=== PATIENT | male | born 1955 | race Caucasian/White ===

== ENCOUNTER 2017-12-30 13:08 | Inpatient (IN) | payer MEDICAID ==
[~2017-12-30] VITALS: Ht 193 cm; Wt 131.5 kg
[2017-12-30 14:06] LABS: BASOPHILS 0.2 % (0-2); EOSINOPHILS 1.9 % (0-7); HEMATOCRIT 47.9 % (42.0-54.0); HEMOGLOBIN 17.1 g/dL (13.5-17.5); IMMATURE GRANULOCYTES 1.7 % (0-5); LYMPHOCYTES 18.1 % (15-50); MCH 32.1 pg (26.0-34.0); MCHC 35.7 g/dL (31.0-37.0); MEAN PLATELET VOLUME 10.9 fL (7.4-10.4); MONOCYTES 7.2 % (2-11); NEUTROPHILS 70.9 % (40-80); PLATELET COUNT 190 10x3/uL (130-400); RBC 5.32 10x6/uL (4.20-6.10); RDW 13.4 % (11.5-14.5); WBC 8.2 10x3/uL (4.8-10.8)
[2017-12-30 14:08] LABS: ALBUMIN 3.2 g/dL (3.4-5.0); BILIRUBIN - TOTAL 0.55 mg/dL (0.2-1.3); CALCIUM 8.8 mg/dL (8.5-10.1); CARBON DIOXIDE 25.3 mmol/L (21.0-32.0); CREATININE - SERUM 1.2 mg/dL (0.6-1.3); POTASSIUM - SERUM 4.3 mmol/L (3.5-5.1); PROTEIN - SERUM 6.9 g/dL (6.4-8.2)
[2017-12-30 16:41] LABS: C-REACTIVE PROTEIN 3.4 mg/dL (0.0-0.9); PRO BNP 34 pg/mL (0-125)
[2017-12-30 16:42] LABS: TROPONIN-I < 0.017 ng/mL (0.000-0.060)
[2017-12-30 22:20] VITALS: BP 121/72; BMI 35.3
[2017-12-31 05:07] VITALS: BP 153/89
[2017-12-31 07:57] VITALS: BP 144/84
[2017-12-31 22:12] VITALS: BP 143/87
[2018-01-01 04:27] VITALS: BP 158/76
[2018-01-01 06:29] LABS: BASOPHILS 0.2 % (0-2); HEMATOCRIT 48.4 % (42.0-54.0); HEMOGLOBIN 16.8 g/dL (13.5-17.5); IMMATURE GRANULOCYTES 1.1 % (0-5); LYMPHOCYTES 16.9 % (15-50); MCH 31.3 pg (26.0-34.0); MCHC 34.7 g/dL (31.0-37.0); MCV 90.1 fL (80.0-100.0); MEAN PLATELET VOLUME 10.9 fL (7.4-10.4); MONOCYTES 8.8 % (2-11); PLATELET COUNT 172 10x3/uL (130-400); RBC 5.37 10x6/uL (4.20-6.10); RDW 13.2 % (11.5-14.5); WBC 8.9 10x3/uL (4.8-10.8)
[2018-01-01 07:01] LABS: ANION GAP 10.5 mmol/L (8-16); CALCIUM 8.6 mg/dL (8.5-10.1); CARBON DIOXIDE 27.5 mmol/L (21.0-32.0); CHOL - HDL RATIO 4.8 ratio (2.3-4.9); CREATININE - SERUM 1.2 mg/dL (0.6-1.3); LDL-HDL RATIO 3.3 ratio (1.5-3.5)
[2018-01-01 09:26] VITALS: BP 138/87
[2018-01-01 12:17] VITALS: Ht 193 cm; Wt 131.5 kg
[2018-01-01 16:31] VITALS: BP 153/84
[2018-01-01 21:44] VITALS: BP 183/87
[2018-01-02 05:09] VITALS: BP 164/80
[2018-01-02 05:27] LABS: BASOPHILS 0.2 % (0-2); EOSINOPHILS 1.8 % (0-7); HEMATOCRIT 47.4 % (42.0-54.0); HEMOGLOBIN 16.4 g/dL (13.5-17.5); IMMATURE GRANULOCYTES 1.6 % (0-5); LYMPHOCYTES 19.9 % (15-50); MCH 31.3 pg (26.0-34.0); MCHC 34.6 g/dL (31.0-37.0); MCV 90.5 fL (80.0-100.0); MEAN PLATELET VOLUME 10.7 fL (7.4-10.4); MONOCYTES 10.4 % (2-11); NEUTROPHILS 66.1 % (40-80); PLATELET COUNT 166 10x3/uL (130-400); RBC 5.24 10x6/uL (4.20-6.10); RDW 13.2 % (11.5-14.5); WBC 8.7 10x3/uL (4.8-10.8)
[2018-01-02 05:39] LABS: ANION GAP 8.1 mmol/L (8-16); CALCIUM 8.3 mg/dL (8.5-10.1); CARBON DIOXIDE 32.5 mmol/L (21.0-32.0); CREATININE - SERUM 1.4 mg/dL (0.6-1.3); POTASSIUM - SERUM 4.6 mmol/L (3.5-5.1)
[2018-01-02 08:14] VITALS: BP 113/83
[2018-01-02 12:02] VITALS: BP 132/85
[2018-01-02 17:01] VITALS: BP 140/86
[2018-01-02 22:14] VITALS: BP 147/75
[2018-01-03 06:02] LABS: BASOPHILS 0.2 % (0-2); EOSINOPHILS 2.2 % (0-7); HEMOGLOBIN 16.3 g/dL (13.5-17.5); IMMATURE GRANULOCYTES 1.4 % (0-5); MCH 31.5 pg (26.0-34.0); MCHC 34.7 g/dL (31.0-37.0); MCV 90.7 fL (80.0-100.0); NEUTROPHILS 64.2 % (40-80); RBC 5.18 10x6/uL (4.20-6.10); RDW 13.3 % (11.5-14.5); WBC 8.6 10x3/uL (4.8-10.8)
[2018-01-03 06:18] LABS: ANION GAP 9.8 mmol/L (8-16); CALCIUM 8.2 mg/dL (8.5-10.1); CARBON DIOXIDE 29.4 mmol/L (21.0-32.0); CREATININE - SERUM 1.5 mg/dL (0.6-1.3); POTASSIUM - SERUM 4.2 mmol/L (3.5-5.1)
[2018-01-03 06:19] LABS: PLATELET COUNT 220 10x3/uL (130-400)
[2018-01-03 06:24] VITALS: BP 171/93
[2018-01-03 08:24] VITALS: BP 133/93
[2018-01-03 12:42] VITALS: BP 142/74
[2018-01-03 20:00] VITALS: BP 134/90
[2018-01-04 04:58] VITALS: BP 137/97
[2018-01-04 06:08] LABS: BASOPHILS 0.3 % (0-2); EOSINOPHILS 2.1 % (0-7); HEMATOCRIT 50.7 % (42.0-54.0); HEMOGLOBIN 17.4 g/dL (13.5-17.5); IMMATURE GRANULOCYTES 1.3 % (0-5); LYMPHOCYTES 22.8 % (15-50); MCH 31.4 pg (26.0-34.0); MCHC 34.3 g/dL (31.0-37.0); MCV 91.5 fL (80.0-100.0); MEAN PLATELET VOLUME 10.9 fL (7.4-10.4); MONOCYTES 7.5 % (2-11); PLATELET COUNT 196 10x3/uL (130-400); RBC 5.54 10x6/uL (4.20-6.10); RDW 13.4 % (11.5-14.5); WBC 7.6 10x3/uL (4.8-10.8)
[2018-01-04 06:27] LABS: ANION GAP 9.2 mmol/L (8-16); CALCIUM 9.1 mg/dL (8.5-10.1); CREATININE - SERUM 1.4 mg/dL (0.6-1.3); POTASSIUM - SERUM 4.2 mmol/L (3.5-5.1)
[2018-01-04 08:23] VITALS: BP 139/93
[2018-01-04 11:30] VITALS: BP 143/86
[2018-01-04] MEDS ORDERED: NICODERM C1 PATCH .1 TRANSDERM (13:09)
[2018-01-04] MEDS ORDERED: PROTONIX40 MG PO (13:09)
[2018-01-04] MEDS ORDERED: GLUCOPHAGE500 MG PO (13:09)
[2018-01-04] MEDS ORDERED: KLOR-CON 1010 MEQ PO (13:10)
[2018-01-04] MEDS ORDERED: LASIX40 MG PO (13:10)
[2018-01-04] MEDS ORDERED: CLEOCIN HCL300 MG PO (13:11)
== END 2018-01-04 18:15 | disposition home or self-care (01) | DRG 603 ==
LOC: D.ER 13:08 → EDBD 13:08 → D.EDHOLD 17:34 → D.MS 17:34
PROVIDERS: Family Medicine; Internal Medicine Nephrology
DX: L03.116 Cellulitis of left lower limb (principal); F17.213 Nicotine dependence, cigarettes, with withdrawal; N17.9 Acute kidney failure, unspecified; E11.65 Type 2 diabetes mellitus with hyperglycemia; I87.2 Venous insufficiency (chronic) (peripheral); I10 Essential (primary) hypertension; E11.610 Type 2 diabetes mellitus with diabetic neuropathic arthropathy